=== PATIENT | male | born 1960 | race African-American/Black ===

== ENCOUNTER 2018-01-30 23:30 | Emergency (ER) | payer OTHER ==
[2018-01-30 23:48] VITALS: BP 144/100; PULSE 82; TEMP 97.8; BMI 31.9
--- NOTE | 2018-01-31 00:02 | PDOC ---
History of Present Illness - General Chief Complaint: Pain Stated Complaint: HIP PAIN Time Seen by Provider: 01/31/18 00:01 - History of Present Illness Initial Comments: 01/31/18 00:34 The patient is a 57 year old male with a history of HTN, DM who presents for evaluation of left hip pain. The patient notes that he was carrying a box upstairs 1 day ago and since then has been experiencing progressively worsening achy left hip pain exacerbated by movement prompting his presentation to the ED for further evaluation. He denies similar symptoms in the past and notes minimal improvement in the pain with ibuprofen use. He otherwise denies fevers , chills, SOB, chest pain, nausea, vomiting, abdominal pain, numbness, tingling , weakness, urinary/bowel incontinence, or changes with urination or bowel movements. Past History - Past Medical History Allergies/Adverse Reactions: Allergies Allergy/AdvReac Type Severity Reaction Status Date / Time No Known Allergies Allergy Verified 01/30/18 23:47 Home Medications: Ambulatory Orders Methocarbamol [Robaxin -] 500 mg PO BID #14 tablet 01/31/18 Naproxen [Naprosyn -] 500 mg PO BID #14 tablet 01/31/18 - Suicide/Smoking/Psychosocial Hx Smoking History: Never smoked Have you smoked in the past 12 months: No Information on smoking cessation initiated: No Hx Alcohol Use: No Drug/Substance Use Hx: No Review of Systems - Review of Systems Comments:: 01/31/18 00:36 Constitutional: No fevers, chills, fatigue, malaise HEENT: No Rhinorrhea, nasal congestion, visual changes Cardiovascular: No chest pain, syncope, palpitations, lightheadedness Respiratory: No Cough, SOB, Hemoptysis, Gastrointestinal: No Abdominal pain, Nausea, Vomiting, Constipation, Diarrhea, Melena Genitourinary: No Dysuria, Frequency, Urgency, Hesitancy, Hematuria, Flank pain Musculoskeletal: Left hip pain. No Myalgia, arthralgia Skin: No rashes, itching, bruising, pallor Neurologic: No Headache, Dizziness, Numbness, Weakness, or Tingling Psychiatric: No Hallucinations. No SI or HI *Physical Exam - Vital Signs Last Vital Signs Temp Pulse Resp BP Pulse Ox 97.8 F 82 20 144/100 98 01/30/18 23:30 01/30/18 23:30 01/30/18 23:30 01/30/18 23:30 01/30/18 23:30 - Physical Exam Comments: 01/31/18 00:37 General Appearance: Nourished. No Apparent Distress HEENT: No Pharyngeal Erythema, Tonsillar Exudate, Tonsillar Erythema Neck: No Cervical Lymphadenopathy Respiratory/Chest: Lungs Clear, Normal Breath Sounds. No Crackles, Rales, Rhonchi, Wheezing Cardiovascular: Regular Rhythm, Regular Rate. No Murmur, Gallops, Rubs Gastrointestinal/Abdominal: Normal Bowel Sounds, Soft. No Guarding, Rebound, Tenderness Musculoskeletal: Full ROM of the left hip with pain with active movement. No pain with passive movement. No pain with log roll. No CVA Tenderness Extremity: Normal Capillary Refill Integumentary: Normal Color, Dry, Warm Neurologic: Fully Oriented, Alert, Normal Mood/Affect, Normal Response, Motor Strength 5/5. Moderate Sedation - Procedure Monitoring Vital Signs: Procedure Monitoring Vital Signs Temperature 97.8 F 01/30/18 23:30 Pulse Rate 82 01/30/18 23:30 Respiratory Rate 20 01/30/18 23:30 Blood Pressure 144/100 01/30/18 23:30 O2 Sat by Pulse Oximetry (%) 98 01/30/18 23:30 Medical Decision Making - Medical Decision Making 01/31/18 00:37 The patient is a 57 year old male with a history of HTN, DM who presents for evaluation of left hip pain. Given the patient's history and physical exam, it is likely the patient's symptoms are due to sciatica or a muscle spasm/strain. He has no red flag signs in history and physical exam. We will treat with robaxin, toradol, and percocet and continue to monitor and reassess while here in the ED. 01/31/18 02:22 The patient reports improvement in his symptoms. We are comfortable discharging the patient home with orthopedic follow up. We discussed the plan and return precautions with the patient who voiced understanding and is agreeable with the plan. *DC/Admit/Observation/Transfer Diagnosis at time of Disposition: Back pain Qualifiers: Back pain location: low back pain Chronicity: unspecified Back pain laterality : left Sciatica presence: with sciatica Sciatica laterality: sciatica laterality unspecified Qualified Code(s): M54.42 - Lumbago with sciatica, left side - Discharge Dispostion Disposition: HOME Condition at time of disposition: Stable Decision to Admit order: No - Prescriptions Prescriptions: Methocarbamol [Robaxin -] 500 mg PO BID #14 tablet Naproxen [Naprosyn -] 500 mg PO BID #14 tablet - Referrals Referrals: Akshat Land MD [Staff Physician] - - Patient Instructions Printed Discharge Instructions: DI for Low Back Pain Additional Instructions: Please return to the ER if you experience concerning or worsening symptoms including worsening difficulty breathing, weakness, or chest pain, worsening pain, loss of urine or stool, weakness. We have sent a prescription for robaxin and naproxen to your pharmacy that you should take as directed to help manage your symptoms. Please call to schedule a follow up appointment with our position classification specialist Dr. Land within 2-3 days to discuss your ER visit and further management of your symptoms. - Post Discharge Activity
[2018-01-31] MEDS ORDERED: METHOCARBAMOL 500 MG TABLET PO ONE (00:12)
[2018-01-31] MEDS ORDERED: KETOROLAC TROMETHAMINE 30 MG/1 ML VIAL IM ONE (00:12)
--- NOTE | 2018-01-31 00:38 | PDOC ---
Attending Attestation - Resident Resident Name: Rogers Ann - ED Attending Attestation I have performed the following: I have examined & evaluated the patient, The case was reviewed & discussed with the resident, I agree w/resident's findings & plan, Exceptions are as noted - HPI HPI: 01/31/18 00:39 57 M with h/o DM, HTN presents to ED with L lower back and buttock pain. Pt states that he was putting boxes into the attic yesterday when he began to have pain in his L buttock. He states that it is worse with walking and bending over. Denies any falls or trauma. Today, the pain worsened. He states it radiates from his buttock down his L leg. Denies any numbness/weakness in either leg. Denies incontinence or saddle anesthesia. - Physicial Exam PE: 01/31/18 00:40 "GENERAL: Awake, alert, and fully oriented, in no acute distress. HEAD: No signs of trauma EYES: PERRLA, EOMI, sclera anicteric, conjunctiva clear ENT: Auricles normal inspection, hearing grossly normal, nares patent, oropharynx clear without exudates. Moist mucosa NECK: Nontender, no stepoffs, Normal ROM, supple, no lymphadenopathy, JVD, or masses LUNGS: Breath sounds equal, clear to auscultation bilaterally. No wheezes, and no crackles HEART: Regular rate and rhythm, normal S1 and S2, no murmurs, rubs or gallops ABDOMEN: Soft, nontender, normoactive bowel sounds. No guarding, no rebound. No masses EXTREMITIES: Normal range of motion, no edema. No clubbing or cyanosis. No cords, erythema, or tenderness NEUROLOGICAL: Cranial nerves II through XII intact. 5/5 strength and sensation in all extremities, Normal speech, normal gait, normal cerebellar function SKIN: Warm, Dry, normal turgor, no rashes or lesions noted. - Medical Decision Making 01/31/18 00:40 57 M with L lower back pain radiating to L leg. Likely sciatic nerve pain. Pt with no s/s cord compression/cauda equina. Normal neuro exam. Pt also with equal distal pulses in both legs and good perfusion, making vascular emergency like dissection, aneurysm, or embolus unlikely. No CVAT or flank pain to suggest kidney stone. - Pain control 01/31/18 02:13 Pt reassessed - pain significantly improved with percocet, toradol, robaxin. Now able to ambulate with minimal pain Pt is well appearing, with normal vitals. Clinically stable for DC at this time. I discussed the physical exam findings, ancillary test results and final diagnoses with the patient. I answered all of the patient's questions. The patient was satisfied with the care received and felt comfortable with the discharge plan and treatment plan. The patient agrees to follow up with the primary care physician within 24-72 hours.
[2018-01-31] MEDS ORDERED: KETOROLAC TROMETHAMINE 30 MG/1 ML VIAL ONE (00:52)
[2018-01-31] MEDS ORDERED: METHOCARBAMOL 500 MG TABLET ONE (00:52)
== END 2018-01-31 04:02 | disposition home or self-care (01) ==
LOC: JER 23:30
PROC: 3E0333Z Introduction of Anti-inflammatory into Peripheral Vein, Percutaneous Approach (ICD-10-PCS; principal; 2018-01-30)
DX: M54.42 Lumbago with sciatica, left side (principal); I10 Essential (primary) hypertension; E11.9 Type 2 diabetes mellitus without complications
CPT/HCPCS: 99282-25